=== PATIENT | male | born 1995 | race Two or more races ===

== ENCOUNTER 2024-10-31 13:05 | Emergency (ER) | payer BC, SELFPAY ==
[2024-10-31 13:37] VITALS: BP 145/88; PULSE 92; RESP 18; TEMP 37.1; O2SAT 96
--- NOTE | 2024-10-31 13:43 | XR_ITS ---
Examination: CT brain head without contrast. 2-D sagittal coronal reconstructions Date and time of exam:October 31, 2024 1336 hrs. Indications: Headaches today CTDI: vol (mGy):56 DLP: (mGycm):1105 Technique: Multiple CT axial sections of the brain have been obtained, 5 mm slice thickness. Contrast has not been administered. 2-D sagittal, coronal reconstructions have been obtained Low dose protocols were performed. One or more of the following dose reduction techniques were used; automated exposure control, adjustment of the mA and/or KV according to patient size, use of iterative reconstruction technique. Findings: No significant ventricular enlargement. Intra-axial or extra-axial hemorrhage density is not seen. No mass effect or midline shift Basal cisterns are not remarkable. Fourth ventricle is midline. Cranial vault intact. Impression: Negative for acute hemorrhage, mass effect or midline shift Please see the CT maxillofacial report
--- NOTE | 2024-10-31 13:43 | XR_ITS ---
Examination: CT maxillofacial, without intravenous contrast. 2-D sagittal reconstructions. 3-D reconstructions. Date and time of exam:October 31, 2024 1356 hrs. Indications: Laceration to the face today with swelling and pain CTDI: vol (mGy):25.3 DLP: (mGycm):154 Technique: Multiple axial images of maxillofacial region, 3.0 mm slice thickness. 2-D sagittal and coronal reconstructions. 3-D reconstructions. Low dose protocols were performed. One or more of the following dose reduction techniques were used; automated exposure control, adjustment of the mA and/or KV according to patient size, use of iterative reconstruction technique. Findings: Soft tissue laceration right eyebrow Soft tissue swelling anterior to the right optic globe. The optic globes are intact with no foreign bodies No retro-orbital hematoma Frontal bone nasal bones zygomatic arches intact No fracture of the maxilla or mandible Impression: Soft tissue laceration right eyebrow The optic globes are intact, no retro-orbital hematoma no foreign body.
--- NOTE | 2024-10-31 13:45 | EDNOTE_ITS ---
<Statement entered by Nicole Rueda MD - 10/31/24 17:35> As co-signing physician, I was present and available for consult prn. I concur with the plan and care as documented by the midlevel provider. ED Wound/Laceration-RME/HPI General Chief Complaint: Wound/Laceration Stated Complaint: LAC TO RIGHT EYEBROW, LIGHT HEADED Time Seen by Provider: 10/31/24 13:16 Arrival date/time: 10/31/24 13:05 RME / HPI RME / HPI narrative: 29-year-old male patient was brought in by family for evaluation regarding right eyebrow injury. Patient was playing golf that hit with a ball resulting into 3 cm gaping laceration to the right eyebrow, associated with headache nausea severity moderate. Patient also complained of eye pain. Denies any neck pain denies any LOC denies any other complaints incident happened few minutes prior to ER visit. Related Data Previous Rx's ?Medication ?Instructions ?Recorded cephalexin 500 mg capsule 500 mg PO TID 7 days #21 cap s 10/31/24 ibuprofen 800 mg tablet 800 mg PO Q8H PRN pain #30 t abs 10/31/24 Allergies Allergy/AdvReac Type Severity Reaction Status Date / Time No Known Allergies Allergy Verified 10/31/24 13:09 Review of Systems Review of Systems Narrative Review of Systems: Review of system reviewed and within normal limits except mentioned in HPI ED Exam Narrative Physical exam: VITAL SIGNS: Reviewed. GENERAL APPEARANCE: Alert and interactive, follows commands, no acute distress, HEAD AND FACE: +3 cm gaping laceration, right eyebrow, no active bleeding ENT: PERRL, pink conjunctivitis, no hyphema, full range of motion of the extraocular muscle with no entrapment or discomfort. Mucous membrane moist. NECK: Supple, nontender, no nuchal rigidity. CHEST: No tenderness, no crepitus, no paradoxical movement, no retractions. LUNGS: Clear, well ventilated, symmetric, no rales, no wheezing, no ronchi, no stridor, good breath sounds bilaterally. HEART: Regular rate, regular rhythm, no murmur, no gallops. ABDOMEN: Soft, positive bowel sounds, nondistended, no guarding, nontender, no rebound, no masses, RECTAL: Deferred. GENITAL: Deferred. NEUROLOGICAL: Gross motor function intact sensory function intact, Appropriate for age. MUSCULOSKELETAL: low back nontender, full range of motion. EXTREMITIES: Nontender, full range of motion. SKIN: Color pink, dry, no rash, no lacerations, no abrasions, no contusions. LYMPHATICS: Deferred. Course Quality Measures none Orders Category Date Time Status Set Up Suture Tray STAT Care 10/31/24 13:[address] facial bones wo con Stat Exams 10/31/24 13:[address] head/brain wo con Stat Exams 10/31/24 13:43 Completed Acetaminophen Tab [Tylenol ES Tab] Med 10/31/24 13:43 Discontinued 1,000 mg PO X1 ONE Lidocaine/Prilocaine Cr 5Gm [Emla Cr] Med 10/31/24 13:43 Discontinued See Dose Instructions TOP X1 ONE Ondansetron Odt [Zofran Odt] Med 10/31/24 13:43 Discontinued 4 mg PO X1 ONE TET,DIP/PERT AC (Adult)-Tdap [Boostrix Adult (Tdap) Med 10/31/24 13:43 Dis continued Vacc] 0.5 ml IMI .ONCE ONE Vital Signs Vital signs: Vital Signs Temperature 98.8 F 10/31/24 13:37 Pulse Rate 92 10/31/24 13:37 Respiratory Rate 18 10/31/24 13:37 Blood Pressure 145/88 H 10/31/24 13:37 Pulse Oximetry (%) 96 10/31/24 13:37 Oxygen Delivery Method Room Air 10/31/24 13:37 Procedures -ED Laceration Laceration 1: Site: other (Eyebrow) Side (If applicable): right Size (cm): 3 Description: stellate Depth: simple, single layer Local Anesthetic: lidocaine 1% Amount of anesthesia used (mL): 3 Pre-repair: wound explored and irrigated extensively Skin layer closed with: nylon Size (cm): 5-0 Number of sutures: 8 Technique: simple, interrupted Wound / Laceration MDM Narrative MDM Narrative:: 29-year-old male patient was brought in by family for evaluation regarding right eyebrow injury. Patient was playing golf that hit with a ball resulting into 3 cm gaping laceration to the right eyebrow, associated with headache nausea severity moderate. Patient also complained of eye pain. Denies any neck pain denies any LOC denies any other complaints incident happened few minutes prior to ER visit. CT scan of the head came back unremarkable CT scan of the face came back unremarkable. Patient results discussed with him. Repair and suturing was done by me see procedure notes. Patient received Zofran Tylenol and Boostrix Patient appears nontoxic and hemodynamically stable. Patient discharged home and instructed to follow-up with primary care provider in 24 to 48 hours. Instructed to return to the emergency department immediately if worsening of symptoms Patient data External records reviewed:: None Clinical information provided by:: patient Social determinants that could affect healthcare access:: none Patient has the following chronic illnesses:: None How is presenting disease/condition affected by chronic disease/condition?: no chronic disease Evaluation data The following diagnostics were reviewed and interpreted by me:: radiology exam(s) Lab and/or radiology exams considered but not ordered:: None Interpretation Summary: See results in MDM Medications / Prescriptions Medications or Prescriptions considered but not ordered:: None Medication administrations:: Medication Administration History Discontinued Medications Acetaminophen (Acetaminophen 500 Mg Tablet) 1,000 mg PO X1 ONE Stop: 10/31/24 13:44 Last Admin: 10/31/24 14:10 Dose: 1,000 mg Documented By: Diphtheria/Tetanus/Acell Pertussis (Diphth,Pertuss(Acell),Tet Vac 0.5 Ml Syr- Adult) 0.5 ml IMi .ONCE ONE Stop: 10/31/24 13:44 Last Admin: 10/31/24 14:13 Dose: 0.5 ml Documented By: Lidocaine/Prilocaine (Lidocaine/Prilocaine Cr 5gm 5 Gm Tube) 0 gm TOP X1 ONE Stop: 10/31/24 13:44 Last Admin: 10/31/24 14:13 Dose: 5 gm Documented By: Ondansetron HCl (Ondansetron Odt 4 Mg Tabrap) 4 mg PO X1 ONE; Protocol Stop: 10/31/24 13:44 Last Admin: 10/31/24 14:11 Dose: 4 mg Documented By: Tylenol Boostrix Zofran Consultations Consultation(s) initiated? (list below): No Diagnosis Wound Differential Diagnosis: laceration, abrasion and avulsion of skin Most likely diagnosis given after review of the tests above:: Eyebrow laceration Admission Indicated Admission indicated?: not indicated Explain why admission is indicated or not indicated:: Stable Admission Request Was there a request for admission?: No Disposition Plan Disposition Plan: Discharge Discharge Attestation Discharge Attestation: The patient and freind were given an opportunity to ask questions and understood the discharge instructions. Discharge instructions specifically effects, indications for sooner follow up or return to the emergency department, and the expected course of current diagnosis. Patient condition: Stable Discharge Plan Plan Patient Disposition: HOME (Self Care) Disposition Comment: Stable Prescriptions/Referrals Prescriptions/Med Rec: New ibuprofen 800 mg tablet 800 mg PO Q8H PRN (Reason: pain) Qty: 30 0RF cephalexin 500 mg capsule 500 mg PO TID 7 Days Qty: 21 0RF Problem List Clinical Impression: Laceration of eyebrow Patient/Caregiver Discharge Instructions Discharge Activity: activity as tolerated Education Materials: ED Laceration: All Closures Additional Instructions: Thank you for the opportunity for serving you today. You are stable for discharged . You are advised to: Follow-up with your PCP in 1 to 2 days Return to ED for worsening of symptoms Increase oral fluids Take medication as prescribed Daily dressing with bacitracin as needed For removal of sutures in 7 days Print Language: Macedonian Stand Alone Forms: Tsering Award Info., Work/School Release, Patient Portal Info Letter HIGINIO/SAUL Supervising Physician HIGINIO/SAUL Supervising Physician: MD Mohit
[2024-10-31] MEDS: ACETAMINOPHEN 500 MG TABLET 1000 MG PO (14:10)
[2024-10-31] MEDS: ONDANSETRON ODT 4 MG TABRAP PO (14:11)
[2024-10-31] MEDS: DIPHTH,PERTUSS(ACELL),TET VAC 0.5 ML SYR- ADULT IMi (14:13)
[2024-10-31] MEDS: LIDOCAINE/PRILOCAINE CR 5GM 5 GM TUBE TOP (14:13)
== END 2024-10-31 15:20 | disposition home or self-care (01) ==
LOC: SERX 15:15
PROVIDERS: Emergency Provider Emergency Medicine
DX: S01.111A Laceration without foreign body of right eyelid and periocular area, initial encounter (principal); W21.04XA Struck by golf ball, initial encounter; Y93.53 Activity, golf; Z23 Encounter for immunization
CPT/HCPCS: 12013; 70450; 70486; 90471; 90715; 99283; Q0162; A9270